=== PATIENT | male | born 2000 | race Caucasian/White ===

== ENCOUNTER 2023-01-19 19:12 | Emergency (ER) | payer BC, SELFPAY ==
[2023-01-19 19:19] VITALS: BP 133/83; PULSE 57; RESP 16; TEMP 36.6; O2SAT 100
--- NOTE | 2023-01-19 19:27 | ED.URI ---
HPI - URI/Sore Throat General Chief Complaint: Upper Respiratory Infection Stated Complaint: uri Time Seen by Provider: 01/19/23 19:27 Source: patient and RN notes reviewed Mode of arrival: ambulatory Limitations: no limitations History of Present Illness HPI Narrative: 22-year-old male presents with concern for one-week history of cough, sinus congestion, fatigue. Reports he is on day 4 of the Z-Jorge that his primary doctor gave him without much improvement. Reports he has been taking his antihistamine. He did a home COVID test that was negative. He reports occasional shortness of breath. MD elicited complaint: cough and nasal congestion Related Data Home Medications Medication Instructions Recorded Confirmed dextroamphetamine-amphetamine ER PO 01/19/23 20 mg 24hr capsule,extend release (Adderall XR) Allergies Allergy/AdvReac Type Severity Reaction Status Date / Time chlorpheniramine Allergy Unknown confusion, Verified 10/27/17 21:20 [Pedia Relief] mental status change dextromethorphan Allergy Unknown confusion, Verified 10/27/17 21:20 [Children's Sudafed PE Cough] mental status change phenylephrine Allergy Unknown confusion, Verified 10/27/17 21:20 [Children's Sudafed PE Cough] mental status change pseudoephedrine Allergy Unknown confusion, Verified 10/27/17 21:20 mental status change Review of Systems Review of Systems: CONSTITUTIONAL: Denies malaise, chills, sweats, or fever. Reports 15 EYES: Denies visual changes, redness, or discharge. ENT: Reports rhinorrhea, congestion, sinus pain, and sore throat. CARDIOVASCULAR: Denies chest pain, palpitations, or edema. RESPIRATORY: Reports cough. Situation dyspnea. GASTROINTESTINAL: Denies abdominal pain, nausea, vomiting, diarrhea SKIN: Denies rash or itching. MUSCULOSKELETAL: Denies myalgia. NEUROLOGIC: Denies headache. All systems reviewed & are unremarkable except as noted in HPI and below PMFSH Family History Family History (Updated 06/19/14 @ 07:13 by DOCTOR UNKNOWN) Other Hypertension Social History Social History Smoking status: Never smoker Comments At time of signature, agree with nursing past medical, surgical, social and family history. There is no relevant family history pertinent to the presenting complaint Exam Narrative: GENERAL: Well-appearing, well-nourished, and in no acute distress. HEAD: Normocephalic EYES: PERRLA, conjunctivae clear ENT: Nares clear, turbinates edematous and erythematous, clear discharge. Mucous membranes moist. TM pearly vargas with dull light reflex bilaterally; no tragal tenderness. Oropharynx not erythematous without lesions. Tonsils not enlarged and without exudate, no drooling, no hoarseness, no trismus, uvula midline. NECK: Supple. No lymphadenopathy CHEST: Clear to auscultation, breath sounds equal. No wheezing, rhonchi, rales, or stridor. No respiratory distress, speaks in full sentences. HEART: Regular rate and rhythm. No murmur heard. SKIN: Warm, dry, no rash. NEURO: Alert and oriented x3. PSYCH: Normal mood and affect Course Course Emergency Course: Patient is aware of diagnosis, understands and agrees to treatment plan. Anticipatory guidance given. Patient agrees to follow-up as directed and is aware of reasons to seek care at the emergency department. Portions of this record may have been created with voice recognition software Level of Care: Express Care Visit Vital Signs Vital signs: Vital Signs Temperature 97.9 F 01/19/23 19:19 Pulse Rate 57 L 01/19/23 19:19 Respiratory Rate 16 01/19/23 19:19 Blood Pressure 133/83 01/19/23 19:19 Pulse Oximetry 100 01/19/23 19:19 Oxygen Delivery Room Air 01/19/23 19:19 Temperature 97.9 F 01/19/23 19:19 Pulse Rate 57 L 01/19/23 19:19 Respiratory Rate 16 01/19/23 19:19 Blood Pressure 133/83 01/19/23 19:19 Pulse Oximetry 100 01/19/23 19:19 Oxygen D
== END 2023-01-19 19:58 | disposition home or self-care (01) ==
PROVIDERS: Emergency Provider Nurse Practitioner; PCP Physician Assistant
DX: J32.9 Chronic sinusitis, unspecified (principal); J40 Bronchitis, not specified as acute or chronic; J45.909 Unspecified asthma, uncomplicated
CPT/HCPCS: 99213; G0463